=== PATIENT | female | born 1995 | race Caucasian/White ===

== ENCOUNTER 2018-03-22 12:14 | Emergency (ER) | payer BC ==
[2018-03-22] MEDS ORDERED: OXYCODONE/APAP 5/325 TAB PO ONE (13:39)
[2018-03-22] MEDS ORDERED: PHENAZOPYRIDINE HCL 200 MG TAB PO ONE (13:39)
[2018-03-22] MEDS ORDERED: CEPHALEXIN 500 MG CAP PO ONE (13:39)
--- NOTE | 2018-03-22 13:39 | EDPHY ---
H & P Stated Complaint: R abd/flank pain Source: Patient Exam Limitations: No limitations - Personal History LMP (Females 10-55): Now Current Tetanus/Diphtheria Vaccine: Yes Current Tetanus Diphtheria and Acellular Pertussis (TDAP): Yes - Medical/Surgical History Hx Asthma: No Hx Chronic Respiratory Disease: No Hx Diabetes: No Hx Cardiac Disease: No Hx Renal Disease: No Hx Cirrhosis: No Hx Alcoholism: No Hx HIV/AIDS: No Hx Splenectomy or Spleen Trauma: No Other PMH: adenoidectomy - Social History Smoking Status: Never smoked Time Seen by Provider: 03/22/18 13:14 HPI/ROS: HPI: This is a 22-year-old female who presents with Chief Complaint: R abd/flank pain Location: Suprapubic Quality: Tenderness Duration: Since Wednesday Signs and Symptoms: no fever, no nausea, no vomiting, no hematemesis, no blood in stool, no abdominal bloating, no diarrhea, + back pain, + urinary symptoms, no vaginal discharge/bleeding, no indigestion, no chest pain, no shortness of breath Timing: Acute, constant Severity: Mild Context: Patient is generally healthy, takes oral control pills, completed menses yesterday afternoon, presents with sudden onset Wednesday of urinary frequency and burning with urination. She reports that the dysuria resolved on Wednesday but then reappeared today accompanied by suprapubic tenderness and cramping and right flank discomfort that is nonradiating in nature. Patient denies any history of kidney stones, ovarian cyst. Eating and drinking without difficulties. Denies fever, chills, nausea, vomiting. No prior history of urinary tract infection. Modifying Factors: Took ibuprofen this morning with transient relief Comment: ROS: A comprehensive 10 system review of systems is otherwise negative aside from elements mentioned in the history of present illness. MEDICAL/SURGICAL/SOCIAL HISTORY: Medical history: Generally healthy. Takes control pills. Surgical history: Adenoidectomy Social history: Family history noncontributory. CONSTITUTIONAL: Extremely well-appearing young adult white female, awake and alert, no obvious distress HEENT: Atraumatic and normocephalic, PERRL, EOMI. Nares patent; no rhinorrhea; no nasal mucosal edema. Tympanic membranes clear. Oropharynx clear, no exudate and moist pink mucosa. Airway patent. No lymphadenopathy. No meningismus. Cardiovascular: Normal S1/S2, regular rate, regular rhythm, without murmur rub or gallop. PULMONARY/CHEST: Symmetrical and nontender. Clear to auscultation bilaterally. Good air movement. No accessory muscle usage. ABDOMEN: Soft, nondistended, mild suprapubic tenderness, negative Welch sign, no rebound, no guarding, no peritoneal signs, no masses or organomegaly. No CVAT. EXTREMITIES: 2/2 pulses, strength 5/5, no deformities, no clubbing, no cyanosis or edema. NEUROLOGICAL: no focal neuro deficits. GCS 15. SKIN: Warm and dry, no erythema. no rash. Good capillary refill. (Krystal Seaman) Constitutional: Initial Vital Signs Temperature (C) 36.7 C 03/22/18 12:19 Heart Rate 90 03/22/18 12:19 Respiratory Rate 16 03/22/18 12:19 Blood Pressure 117/73 03/22/18 12:19 O2 Sat (%) 96 03/22/18 12:19 O2 Delivery Mode Room Air Allergies/Adverse Reactions: No Known Allergies Allergy (Unverified 03/22/18 12:19) Home Medications: Medication Instructions Recorded Bcp 03/22/18 Cephalexin [Keflex (*)] 500 mg PO TID #21 cap 03/22/18 Phenazopyridine HCl [Pyridium] 200 mg PO TID 2 Days tab 03/22/18 Medical Decision Making ED Course/Re-evaluation: Vital signs reviewed and stable upon arrival. No right lower quadrant tenderness to indicate ultrasound to rule out ovarian cyst, torsion or appendicitis. Urinalysis clearly shows infection; sent for culture; given Keflex 500 mg, Pyridium 200 mg, Percocet in the emergency room Patient urinated 2 times while in the emergency room. Patient has a urinary tract infection but no systemic signs to indicate pyelonephritis like fever, chills, nausea, vomiting. This patient was seen under the supervision of my secondary supervising physician. I evaluated care for this patient independently. Discussed this patient with Dr. Awad. (Krystal Seaman) I did not see this patient while she was in the emergency department. However her care was discussed with the PA while the patient was in the department. I agree with treatment plan and management (Alec Awad) Differential Diagnosis: Abdominal pain including but not limited to appendicitis, cholecystitis, gastritis and urinary tract infection. (Krystal Seaman) - Data Points Laboratory Results: 03/22/18 12:22 Urine Color YELLOW Urine Appearance MODERATELY TURBID Urine pH 6.0 (5.0-7.5) Ur Specific [place] 1.006 (1.002-1.030) Urine Protein 2+ H (NEGATIVE) Urine Ketones NEGATIVE (NEGATIVE) Urine Blood 3+ H (NEGATIVE) Urine Nitrate NEGATIVE (NEGATIVE) Urine Bilirubin NEGATIVE (NEGATIVE) Urine Urobilinogen NEGATIVE EU EU (0.2-1.0) Ur Leukocyte Esterase 3+ H (NEGATIVE) Urine RBC 50-182 /hpf H /hpf (0-3) Urine WBC 50-182 /hpf H /hpf (0-3) Ur Epithelial Cells TRACE /lpf /lpf (NONE-1+) Urine Bacteria 4+ /hpf H /hpf (NONE SEEN) Urine Mucus TRACE /lpf /lpf (NONE-1+) Urine Glucose NEGATIVE (NEGATIVE) Medications Given: Discontinued Medications Cephalexin HCl (Keflex) 500 mg PO EDNOW ONE PRN Reason: Protocol Stop: 03/22/18 13:40 Last Admin: 03/22/18 13:45 Dose: 500 mg Oxycodone/Acetaminophen (Percocet 5/325) 1 tab PO EDNOW ONE Stop: 03/22/18 13:40 Last Admin: 03/22/18 13:45 Dose: 1 tab Phenazopyridine HCl (Pyridium) 200 mg PO EDNOW ONE Stop: 03/22/18 13:40 Last Admin: 03/22/18 13:45 Dose: 200 mg Departure - Departure Disposition: Home, Routine, Self-Care Clinical Impression: Lower urinary tract infection, acute Condition: Good Instructions: Urinary Tract Infection in Women (ED) Additional Instructions: Consume a minimum of 8-10 glasses of water or electrolyte fluid replacement drinks that include Gatorade, Powerade, Pedialyte. Take antibiotics as directed. Do not skip a dose. Complete entire course. Take Pyridium 3 times a day for the next 2 days. Take Tylenol 650 mg every 4 hr and/or ibuprofen 600 mg every 8 hr as needed for pain, fever. If no improvement in 3-4 days follow[facility]up [facility]. Referrals: [facility],. [Clinic] - 3-4 days, if not improved Prescriptions: Cephalexin [Keflex (*)] 500 mg PO TID #21 cap Phenazopyridine HCl [Pyridium] 200 mg PO TID 2 Days tab
[2018-03-22 13:56] VITALS: BP 138/88
== END 2018-03-22 13:54 | disposition home or self-care (01) ==
DX: N39.0 Urinary tract infection, site not specified (principal)